=== PATIENT | male | born 1955 | race Caucasian/White ===

== ENCOUNTER → 2017-06-27 | Outpatient (CLI) | payer BC ==
--- NOTE | 2017-06-27 18:26 | PCVCIMAG ---
APPROVED REPORT Exam: Stress Echocardiogram Indication: CAD, Hyperlipidemia Patient Location: Echo lab Stress Nurse: Joahnny Cox RN Status: routine HR: 80 bpm Rhythm: NSR Medical History Medical History: CAD non obstructive, Hyperlipidemia Pretest Chest Pain Characteristics: none Exercise History: Sedentary Procedure The patient underwent an Exercise Stress Test using the Malcom Protocol. Blood pressure, heart rate, and EKG were monitored. An Echocardiogram was performed by tool grinding technician in four stages in quad fashion. At peak stress, four selected images were obtained and placed side by side with resting images for comparison. Stress Test Details Stress Test: Exercise stress testing was performed using a Malcom protocol. HR Resting HR: 80 bpmMax Heart Rate (APMHR): 158 bpm Max HR Achieved: 155 bpmTarget HR (85% APMHR): 134 bpm % of APMHR: 98 Recovery HR: 91 bpm BP Resting BP: 142/88 mmHg Max BP: 208/80 mmHg Recovery BP: 190/90 mmHg ECG Resting ECG: Sinus Rhythm Stress ECG: Sinus Rhythm ST Change: Non-ischemic Maximum ST Deviation: 0.8 mm Arrhythmia: None Recovery ECG: Sinus Rhythm Recovery ST Change: Non-ischemic Recovery Arrhythmia: None Clinical Reason for Termination: Maximal effort, Dyspnea Stress Symptoms: none Exercise duration: 6 min sec Highest Stage Achieved: Stage 2: 2.5 mph at 12% grade. Exercise capacity: 7 METs Overall Exercise Capacity for Age: Poor Angina Score: None Stress ECG Conclusion The patient exercised according to the MALCOM protocol for6 minutes; achieving a work level of 7.0 METS. The resting heart rate of 80 bpm baltazar to a maximal heart rate of 155 bpm. This value represents 98 % of the maximal, age-predicted heart rate. The resting blood pressure of 142/88 mmHg, baltazar to a maximum blood pressure of 208/80 mmHg. The exercise test was stopped due to fatigue. Gonzalez Treadmill Score is 2.0 which is Moderate risk. Pre-Stress Echo The resting Echocardiogram showed normal left ventricular contractility with an estimated Ejection Fraction of about >55%. Normal wall motion in all segments on baseline images. Post-Stress Echo The stress Echocardiogram showed normal left ventricular contractility with an estimated Ejection Fraction of about 65-70%. Normal augmentation of wall motion in all segments on post stress images. Clinical No clinical or ECG evidence for ischemia. Conclusion Clinical Response: Non-ischemic Exercise Capacity: Below Average Stress ECG Response: Non-ischemic Stress Echo Images: Non-ischemic No clinical, EKG or echocardiographic evidence for ischemia. Normal stress echocardiogram with maximal exercise stress. <Conclusion> No clinical, EKG or echocardiographic evidence for ischemia. Normal stress echocardiogram with maximal exercise stress.
== END | disposition home or self-care (01) ==
LOC: PCVCIMAG 14:08
PROVIDERS: ATTEND Internal Medicine Cardiovascular Disease
DX: I25.10 Atherosclerotic heart disease of native coronary artery without angina pectoris (principal); E78.5 Hyperlipidemia, unspecified; E78.00 Pure hypercholesterolemia, unspecified
CPT/HCPCS: 93325; 93351